=== PATIENT | female | born 1960 | race African-American/Black ===

== ENCOUNTER 2023-07-18 11:54 | Emergency (ER) | payer OTHER, MEDICAID ==
[~2023-07-18] VITALS: Ht 165.1 cm; Wt 108.9 kg
[2023-07-18 12:06] VITALS: BP_SYST 138; PULSE 71; RESP 18; TEMP 98.3; O2SAT 98
[2023-07-18] MEDS ORDERED: IBUP-1969 PO (15:02)
[2023-07-18 15:24] VITALS: BP_SYST 147; PULSE 85; RESP 18; TEMP 97.8; O2SAT 97
== END 2023-07-18 15:16 | disposition home or self-care (01) ==
LOC: SED 11:54
DX: S83.92XA Sprain of unspecified site of left knee, initial encounter (principal); M25.462 Effusion, left knee; I10 Essential (primary) hypertension; Z79.899 Other long term (current) drug therapy; X58.XXXA Exposure to other specified factors, initial encounter; Y93.89 Activity, other specified; Y92.89 Other specified places as the place of occurrence of the external cause; Y99.8 Other external cause status
CPT/HCPCS: 73564; 99283

== ENCOUNTER 2023-11-24 19:54 | Emergency (ER) | payer MEDICARE, MEDICAID ==
[~2023-11-24] VITALS: Ht 165.1 cm; Wt 108.0 kg
[~2023-11-24 19:54] MED LIST: IBUP-1969 PO
[2023-11-24 20:13] VITALS: BP_SYST 182; PULSE 65; RESP 18; TEMP 97.6; O2SAT 100
[2023-11-24] MEDS ORDERED: HYDR25TA4 PO (20:53)
[2023-11-24 20:58] LABS: BASOPHILS % (AUTO) 0.4 % (0.0-2.0); EOSINOPHILS # (AUTO) 0.1 K/uL (0.0-0.4); EOSINOPHILS % (AUTO) 2.2 % (0.0-4.0); HEMATOCRIT 36.6 % (36-48); HEMOGLOBIN 11.9 g/dL (12.0-16.0); LYMPHOCYTES # (AUTO) 1.9 K/uL (1.0-5.5); LYMPHOCYTES % (AUTO) 43.3 % (20.5-51.5); MEAN CORPUSCULAR HEMOGLOBIN 27 pg (27-31); MEAN CORPUSCULAR HGB CONC 33 % (32-36); MEAN CORPUSCULAR VOLUME 82 fL (79.0-98.0); MONOCYTES # (AUTO) 0.4 K/uL (0.0-1.0); NEUTROPHILS % (AUTO) 45.1 % (40.0-70.0); PLATELET COUNT (AUTO) 237 K/uL (130-430); RED BLOOD CELL COUNT(AUTO) 4.48 MIL/uL (4.2-6.2); RED CELL DISTRIBUTION WIDTH 14.4 % (9.0-15.0); WHITE BLOOD COUNT (AUTO) 4.4 K/uL (4.8-10.8)
[2023-11-24] MEDS ORDERED: HYDROCHLOROTHIAZIDE 12.5 MG CAPSULE (HCTZ) PO ONE (21:00)
[2023-11-24 21:21] LABS: ANION GAP 6 (5-15); CALCIUM 8.6 mg/dL (8.4-11.0); CARBON DIOXIDE 27 mmol/L (23-29); CHLORIDE 107 mmol/L (98-107); CREATININE 0.72 mg/dL (0.55-1.30); GFR AFRICAN AMERICAN 105 mL/min (>90); GLUCOSE 97 mg/dL (74-106); POTASSIUM 4.1 mmol/L (3.5-5.1); SODIUM SERUM 140 mmol/L (136-145); UREA NITROGEN, BLOOD 6 mg/dL (8-21)
[2023-11-24 21:36] LABS: GFR NON AFRICAN-AMERICAN 86 mL/min (>90)
[2023-11-24 22:21] VITALS: BP_SYST 162; PULSE 82; RESP 18; TEMP 97.8; O2SAT 98
== END 2023-11-24 22:18 | disposition home or self-care (01) ==
LOC: SED 19:54
DX: I16.0 Hypertensive urgency (principal); I10 Essential (primary) hypertension; Z79.899 Other long term (current) drug therapy
CPT/HCPCS: 36415; 71045; 80048; 83880; 84484; 85025; 93005; 99285

== ENCOUNTER 2024-01-19 12:59 | Emergency (ER) | payer MEDICARE, MEDICAID ==
[~2024-01-19] VITALS: Ht 165.1 cm; Wt 111.1 kg
[~2024-01-19 12:59] MED LIST changes: +HYDR25TA4 PO
[2024-01-19 13:22] VITALS: BP_SYST 163; PULSE 60; RESP 18; TEMP 98.3; O2SAT 98
[2024-01-19] MEDS: cloNIDine HCL 0.1 MG TABLET PO ONE (14:59)
[2024-01-19 15:07] VITALS: BP_SYST 170; PULSE 61; RESP 18; TEMP 98.3; O2SAT 98
== END 2024-01-19 15:51 | disposition home or self-care (01) ==
LOC: SED 12:59
DX: I10 Essential (primary) hypertension (principal); Z79.899 Other long term (current) drug therapy
CPT/HCPCS: 71045; 93005; 99283